=== PATIENT | female | born 1950 | race Caucasian/White ===

== ENCOUNTER 2021-10-20 12:38 | Inpatient (IN) | payer MEDICARE ==
[~2021-10-20] VITALS: Ht 160 cm; Wt 68.5 kg
[2021-10-20] MEDS ORDERED: HYDROCHLOROTHIA25 MG PO (17:58)
[2021-10-20] MEDS ORDERED: LISINOPRIL20 MG PO (17:58)
[2021-10-20] MEDS ORDERED: ASPIRIN EC81 MG PO (17:59)
[2021-10-20] MEDS ORDERED: PROAIR HFA8.5 GM INH (17:59)
[2021-10-21 09:17] LABS: HEMOGLOBIN 10.9 gm/dl (12.3-15.3); RED BLOOD COUNT 3.63 M/UL (4.00-5.10); WHITE BLOOD COUNT 9.1 K/UL (4.5-11.0)
[2021-10-21 09:41] LABS: BUN/CREATININE RATIO 25 (0-10)
--- NOTE | 2021-10-23 09:50 | NUR ---
ABD DRESSING CHANGED. MODERATE DRAINAGE NOTED TO ABD PAD. INCISION WAS PINK. SITE WAS CLEANED WITH GAUZE AND NON STICK PAD AND ABD PAD REAPPLIED. COMPRESSION WRAP REAPPLIED. PATIENT HAPPY WITH HEALING PROCESS.
--- NOTE | 2021-10-24 10:29 | NUR ---
PT DRESSING CHANGED PER PROVIDERS ORDER. WOUND CLEANED WITH STERILE WATER. PAT DRY VASSILEN DRESSING APPLIED WITH NON ADHERENT OVER THAT AND ABD TO COVER ALL DRESSINGS. ABDOMINAL BINDER THEN APPLIED TO HOLD DRESSING AND WOUND IN PLACE AND RELIEVE PRESSURE.
[2021-10-27 06:52] LABS: BUN/CREATININE RATIO 30 (0-10)
--- NOTE | 2021-10-28 01:55 | NUR ---
PT REFUSED FINGER STICK AND SAID THAT SHE DID NOT WANT IT.
--- NOTE | 2021-10-28 03:09 | NUR ---
TPN TUBING CHANGED AND NEW BAG HUNG. TUBING IS LABELED.
== END 2021-10-28 13:53 | disposition home or self-care (01) | DRG 390 ==
LOC: MED SURG 4 17:30
PROVIDERS: Family Medicine; ADMIT Surgery
PROC: 3E0336Z Introduction of Nutritional Substance into Peripheral Vein, Percutaneous Approach (ICD-10-PCS; principal; 2021-10-20)
DX: K56.7 Ileus, unspecified (principal); I10 Essential (primary) hypertension; J44.9 Chronic obstructive pulmonary disease, unspecified; L89.312 Pressure ulcer of right buttock, stage 2; Z20.822 Contact with and (suspected) exposure to COVID-19
CPT/HCPCS: 36415; 80048; 80053; 82962; 83735; 84100; 85025; 87070; 87205; 94760; J1170; J1650; J2405; Q9967; U0002